=== PATIENT | male | born 1995 | race Caucasian/White ===

== ENCOUNTER → 2023-08-07 13:17 | Outpatient (REF) | payer OTHER, SELFPAY ==
[2023-08-08 20:30] LABS: Hepatitis B Surface Antibody Negative
== END ==
LOC: OHS 13:17
PROVIDERS: ATTENDING PHYSICIAN Nurse Practitioner Family
DX: Z23 Encounter for immunization (principal)
CPT/HCPCS: 86706

== ENCOUNTER 2023-11-24 16:51 | Emergency (ER) | payer BC, SELFPAY ==
[2023-11-24 16:55] VITALS: BP 159/93
[2023-11-24 18:09] VITALS: BMI 35.8
[2023-11-24 18:42] LABS: % Basophils 0.8 % (0-2); % Eosinophils 1.4 % (0-6); % Immature Granulocytes 0.2 % (0-0.5); % Monocytes 7.8 % (1.7-9.3); % Neutrophils 58.8 % (42.2-75.2); Absolute Basophils 0.1 10^3/uL (0-0.2); Absolute Eosinophils 0.1 10^3/uL (0-0.7); Absolute Monocytes 0.8 10^3/uL (0.1-0.6); Absolute Neutrophils 5.7 10^3/uL (1.4-6.5); Hematocrit 44.5 % (39.0-52.0); Hemoglobin 15.8 g/dL (13.0-18.0); Mean Corp Hgb Conc. 35.5 g/dL (33.0-37.0); Mean Corpuscular Hgb 31.9 pg (27.0-31.0); Mean Corpuscular Volume 89.9 fL (80.0-94.0); Mean Platelet Volume 9.3 fL (7.4-10.4); Nucleated Red Blood Cells % 0 % (-); Platelet Count 341 10^3/uL (130-400); Red Blood Cell Count 4.95 10^6/uL (4.70-6.10); Urine Albumin Trace (Neg - Trace); Urine Bilirubin Negative (Negative); Urine Character Clear (Clear); Urine Color Yellow; Urine Glucose Negative (Negative); Urine Ketone Negative (Negative); Urine Leukocyte Negative (Negative); Urine Nitrite Negative (Negative); Urine Occult Blood Negative (Negative); Urine Specific Gravity 1.025 (<1.030); Urine Urobilinogen 1+ (Neg - 1+); White Blood Cell Count 9.7 10^3/uL (4.8-10.8)
--- NOTE | 2023-11-24 18:56 | ED.GENMED ---
History of Present Illness
General
Chief Complaint: Abdominal Pain
Source: patient
Exam Limitations: none
Time Seen by Provider: 11/24/23 17:32
Nursing documentation reviewed up to this point in time: agreed with
History of Present Illness
History of Present Illness:
Patient to ED with complaint of RLQ abd. pain. Symptoms started 3 weeks ago and describes as mild. Last few days pain has become worse. Denies fever/chills, n/v/d. No priorhistory of same. Brought self to ED for eval.
Past History
Past History
ED Past Medical History: None
ED Past Surgical History: Other ([place] teeth)
Social History
Tobacco: Non-smoker
Alcohol: None
Drug: None
Personal: Single
Living: with family
Review of Systems
Review of Systems
Allergies reviewed?: Yes
All Other Systems: ROS reviewed and negative except as documented in HPI and ROS
Constitutional: Reports no symptoms
EENT: Reports no symptoms
Respiratory: Reports no symptoms
Cardiac: Reports no symptoms
ABD/GI: Reports abdominal pain (RLQ)
: Reports no symptoms
Musculoskeletal: Reports no symptoms
Skin: Reports no symptoms
Neurological: Reports no symptoms
Psychiatric: Reports no symptoms
Phy Exam
General Physical Exam
General Presentation: well appearing and no apparent distress
General age: appears stated age
General Skin: warm and dry
General Habitus: normal
Cardiovascular Exam
Cardiovascular Exam: regular rate/rhythm
Gastrointestinal Exam
Gastrointestinal Exam: normal bowel sounds, soft, no organomegaly, non distended and no cva tenderness
Palpation: left upper quadrant: No tenderness, left lower quadrant: No tenderness, right upper quadrant: No tenderness and right lower quadrant: Moderate tenderness
Musculoskeletal Exam
Musculoskeletal Exam: full ROM and neuro vasc intact
Skin Exam
Skin Exam: normal color, warm/dry and no rash
Psychiatric Exam
Psychiatric Exam: normal mood/affect
Course
Orders/Labs/Results
Orders:
Orders
11/24/23 18:32
Complete Blood Count/With Diff Urgent
Comprehensive Metabolic Panel Urgent
Lipase Urgent
Urinalysis Reflex To Culture Urgent
Date Specimen was Collected: 11/24/23
Time Specimen was Collected: 18:31
11/24/23 18:50
Iohexol [Omnipaque] See Protocol PO NOW STA
11/24/23 18:51
CT Abd/pel W Iv And Oral Contr Urgent
Comment:
Reason For Exam: RLQ pain
11/24/23 23:17
Amoxicillin 875 mg/Clav 125 mg [Augmentin 875 mg/125 mg] 1 tablet PO NOW STA
Abnormal Lab Results
11/24/23
18:32
MCH 31.9 H pg
(27.0-31.0)
Absolute Monos (auto) 0.8 H 10^3/uL
(0.1-0.6)
ALT 68 H U/L
(0-50)
11/24/23 18:32
11/24/23 18:32
Vital Signs
Initial and Last Documented VS:
Initial Vital Signs
Temp Pulse Resp BP Pulse Ox
98.5 F 100 18 159/93 99
11/24/23 16:55 11/24/23 16:55 11/24/23 16:55 11/24/23 16:55 11/24/23 16:55
Last Documented Vital Signs
Temp Pulse Resp BP Pulse Ox
98.7 F 69 18 126/71 99
11/24/23 22:00 11/24/23 23:45 11/24/23 23:45 11/24/23 23:45 11/24/23 23:45
*Critical Care Note
Total Time (30-74mins, 75-104mins- exclusive of procedures): Not Applicable
Update Note
Update Note:
Ct results discussed with Dr. Love. Will discharge home on po antibiotics, can follow up outpatient.. He was given instructions on s/s to return to ED and he is agreeable to plan.
ED Attending Note
-
Portions of this chart may have been created with voice recognition software.� Occasional wrong word or��sound alike� substitutions may have occurred due to the inherent limitations of voice recognition software.
Discharge Plan
Departure
Patient Disposition: Home (Routine Discharge)
Date of Disposition: 11/24/23
Time of Disposition: 23:18
Patient with high blood pressure during this ER visit?: No
Condition: Good
Covid-19: Not Applicable
Discharge Problem:
Abdominal pain in male
Instructions: Appendicitis, Adult (DC), Abdominal Pain
Prescriptions:
New
amoxicillin-pot clavulanate 875-125 mg tablet
1 tab PO BID Qty: 20 0RF
No Action
fluoxetine [Prozac] 40 MG capsule
40 mg PO Daily
amoxicillin-pot clavulanate 1 TABLET tablet
1 tab PO Q12 Qty: 20 0RF
prednisone 10 MG tablet
10 mg PO .TAPER Qty: 30 0RF
Rx Instructions:
Take 40mg daily x3days, 30mg daily x3days,
20mg daily x3days, 10mg daily x3days.
Referrals:
Juancho Love MD [Active] - Call in 1-3 days for appt
NONE,* [Family Provider] -
Stand Alone Forms: Return to Work
Activity Restrictions/Additional Instructions:
Return to the emergency department immediately for any changes in/worsening of your symptoms
Interventions
Interventions:
*Risk Screen - Suicide Last Done: 11/24/23 16:55
*General Assessment Last Done: 11/24/23 20:00
*Neglect/Abuse Screening Last Done: 11/24/23 16:55
ED- Fall Risk Assessment Last Done: 11/24/23 18:08
*ED COVID-19 Vaccine History Last Done: 11/24/23 16:55
*Nursing Disposition Last Done: 11/24/23 23:45
DR-Ccvfrj-Ccmbgufudr Assessment Last Done: 11/24/23 21:00
Discharge Date and Time
Discharge Date/Time: 11/24/23 23:47
Print Language: [place]
[2023-11-24 18:58] LABS: ALT (SGPT) 68 U/L (0-50); AST (SGOT) 49 U/L (17-59); Albumin 4.8 g/dl (3.5-5.0); Alkaline Phosphatase 116 U/L (38-126); Blood Urea Nitrogen 11 mg/dl (9-20); Calcium 9.4 mg/dl (8.4-10.2); Carbon Dioxide 27 mmol/L (22-30); Chloride 105 mmol/L (98-107); Estimated Creatinine Clearance 124 ml/min; Glucose 91 mg/dl (70-99); Lipase 60 U/L (23-300); Potassium 4.1 mmol/L (3.5-5.1); Sodium 145 mmol/L (135-145); Total Bilirubin 0.4 mg/dl (0.2-1.3); Total Protein 7.9 g/dl (6.3-8.2); eGFR > 60.00
[2023-11-24] MEDS: OMNIPAQUE 50 ML PO (19:04)
[2023-11-24 20:00] VITALS: BP 126/58
[2023-11-24 22:00] VITALS: BP 120/54
[2023-11-24] MEDS: AUGMENTIN 875 MG/125 MG 1 TABLET PO (23:35)
[2023-11-24 23:45] VITALS: BP 126/71
== END 2023-11-24 23:47 | disposition home or self-care (01) ==
LOC: EMR 16:51
PROVIDERS: Nurse Practitioner; EMERGENCY PHYSICIAN Emergency Medicine
DX: R10.31 Right lower quadrant pain (principal); R79.89 Other specified abnormal findings of blood chemistry
CPT/HCPCS: 99284; 74177; 80053; 81003; 83690; 85025; Q9967

== ENCOUNTER 2023-12-02 20:08 | Emergency (ER) | payer BC, SELFPAY ==
[2023-12-02 20:13] VITALS: BP 160/76
[2023-12-02 20:32] LABS: % Basophils 0.7 % (0-2); % Eosinophils 1.1 % (0-6); % Immature Granulocytes 0.3 % (0-0.5); % Monocytes 9.5 % (1.7-9.3); % Neutrophils 66.4 % (42.2-75.2); Absolute Basophils 0.1 10^3/uL (0-0.2); Absolute Eosinophils 0.1 10^3/uL (0-0.7); Absolute Lymphocytes 2.4 10^3/uL (1.2-3.4); Absolute Neutrophils 7.2 10^3/uL (1.4-6.5); Hemoglobin 14.9 g/dL (13.0-18.0); Mean Corp Hgb Conc. 36.3 g/dL (33.0-37.0); Mean Corpuscular Hgb 30.9 pg (27.0-31.0); Mean Corpuscular Volume 85.1 fL (80.0-94.0); Mean Platelet Volume 9.2 fL (7.4-10.4); Nucleated Red Blood Cells % 0 % (-); Platelet Count 331 10^3/uL (130-400); Red Blood Cell Count 4.82 10^6/uL (4.70-6.10); Red Cell Dist. Width 12.2 % (11.5-14.5); White Blood Cell Count 10.8 10^3/uL (4.8-10.8)
[2023-12-02 20:43] LABS: Blood Urea Nitrogen 15 mg/dl (9-20); Calcium 10.1 mg/dl (8.4-10.2); Carbon Dioxide 23 mmol/L (22-30); Chloride 106 mmol/L (98-107); Glucose 93 mg/dl (70-99); Sodium 143 mmol/L (135-145); eGFR > 60.00
[2023-12-02 21:27] VITALS: BMI 35.4
[2023-12-02 21:33] VITALS: BP 128/72
[2023-12-02 21:43] LABS: Lactic Acid 1.5 mmol/L (0.7-2.0)
[2023-12-02 22:00] VITALS: BP 119/59
--- NOTE | 2023-12-02 22:07 | ED.GENMED ---
History of Present Illness
General
Chief Complaint: Abdominal Pain
Source: patient
Exam Limitations: none
Time Seen by Provider: 12/02/23 21:27
Nursing documentation reviewed up to this point in time: agreed with
History of Present Illness
History of Present Illness:
28 yo male with hx of 'chronically enlarged appendix' here for second time in two week with RLQ pain. Here on 11/23 and after discussed with surgery, went home on Augmentin with close f/u. Pt is on day 7 of Augmentin, states pain has been constant
for 2 weeks, never had it this long and was associated with nausea today and temp of 99.2. 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 Was told to return if symptoms worsen. Pt states pain is 4-5 RLQ with
radiation to right lower back and pelvis areas.
Past History
Past History
ED Past Medical History: Psychiatric (Anxiety, ADHD, on fluoxetine)
ED Past Surgical History: Other ([place] teeth)
Social History
Tobacco: Non-smoker
Alcohol: None
Drug: None
Personal: Single
Living: with family
Review of Systems
Review of Systems
Allergies reviewed?: Yes
All Other Systems: ROS reviewed and negative except as documented in HPI and ROS
Constitutional: Denies fever
Respiratory: Denies trouble breathing
Cardiac: Denies chest pain
ABD/GI: Reports abdominal pain and nausea; Denies vomiting or diarrhea
: Denies dysuria or difficulty voiding
Musculoskeletal: Reports no symptoms
Skin: Reports no symptoms
Neurological: Reports no symptoms
Phy Exam
Physical Exam
Physical Exam:
GENERAL: No acute distress. A&Ox3.
CONSTITUTIONAL: Afebrile.
EYES: clear, conjunctivae normal
ENMT: moist mucus membranes, Pharynx nl
RESPIRATORY: Regular respirations, nonlabored, lungs clear.
CARDIOVASCULAR: Regular rate and rhythm, no murmurs, no rubs.
GI: Soft, nontender at this time, normal BS
MUSCULOSKELETAL: Moves with ease. Well perfused.
SKIN: Warm, dry, pink
PSYCH: Normal mood and affect. Well kept, interactive and appropriate
NEUROLOGIC: Awake, alert and oriented. No focal neurological deficits
Course
Orders/Labs/Results
Orders:
Orders
12/02/23 20:21
Basic Metabolic Panel Urgent
Complete Blood Count/With Diff Urgent
12/02/23 21:26
Lactic Acid Urgent
12/02/23 22:10
CT Abd/Pel (IV only)-DH only Urgent
Comment:
Reason For Exam: RLQ pain
12/02/23 22:12
0.9% Sodium Chloride 1000 ml [Nss] 1,000 ml IV BOLUS
Abnormal Lab Results
12/02/23
20:21
Absolute Neuts (auto) 7.2 H 10^3/uL
(1.4-6.5)
Absolute Monos (auto) 1.0 H 10^3/uL
(0.1-0.6)
Monocytes % 9.5 H %
(1.7-9.3)
12/02/23 20:21
12/02/23 20:21
Vital Signs
Initial and Last Documented VS:
Initial Vital Signs
Temp Pulse Resp BP Pulse Ox
98.2 F 94 22 160/76 98
12/02/23 20:13 12/02/23 20:13 12/02/23 20:13 12/02/23 20:13 12/02/23 20:13
Last Documented Vital Signs
Temp Pulse Resp BP Pulse Ox
98.2 F 94 22 119/61 97
12/02/23 20:13 12/02/23 20:13 12/02/23 20:13 12/02/23 23:00 12/02/23 23:15
MDM/Problems Addressed
Differential Diagnosis Includes:
Acute appendicitis
MDM/Problems Addressed:
28 yo male with hx of 'chronically enlarged appendix' here for second time in two week with RLQ pain. Here on 11/23 and after discussed with surgery, went home on Augmentin with close f/u. Pt is on day 7 of Augmentin, states pain has been constant
for 2 weeks, never had it this long and was associated with nausea today and temp of 99.2. 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 Was told to return if symptoms worsen. Pt states pain is 4-5 RLQ with
radiation to right lower back and pelvis areas.
Afebrile, NAD
Minimal tenderness to palpation of abdomen, no guarding.
CBC normal
CMP normal
Lactic acid normal
Consulted Dr. Amor who requests repeat CT and if no change or improved send home to f/u as out pt.
If worse, admit
11:15 PM:
CT abdomen pelvis with IV only contrast radiology report read:IMPRESSION:
1. No CT evidence for acute appendicitis.
2. Moderate diffuse hepatic steatosis.
Patient will follow-up with Dr. Amor as an outpatient.
*Critical Care Note
Total Time (30-74mins, 75-104mins- exclusive of procedures): Not Applicable
ED Attending Note
-
Portions of this chart may have been created with voice recognition software.� Occasional wrong word or��sound alike� substitutions may have occurred due to the inherent limitations of voice recognition software.
Discharge Plan
Departure
Patient Disposition: Home (Routine Discharge)
Date of Disposition: 12/02/23
Time of Disposition: 23:23
Patient with high blood pressure during this ER visit?: No
Condition: Good
Discharge Problem:
Abdominal pain
Instructions: Abdominal Pain
Prescriptions:
No Action
fluoxetine [Prozac] 40 MG capsule
40 mg PO Daily
amoxicillin-pot clavulanate 1 TABLET tablet
1 tab PO Q12 Qty: 20 0RF
prednisone 10 MG tablet
10 mg PO .TAPER Qty: 30 0RF
Rx Instructions:
Take 40mg daily x3days, 30mg daily x3days,
20mg daily x3days, 10mg daily x3days.
amoxicillin-pot clavulanate 875-125 mg tablet
1 tab PO BID Qty: 20 0RF
Referrals:
JUSTA BANG MD [Family Provider] -
Parag Amor MD [Active] - Next open appointment
Activity Restrictions/Additional Instructions:
As we discussed, nothing in your workup here today indicate acute appendicitis.
Follow-up with Dr. Amor
Interventions
Interventions:
*Risk Screen - Suicide Last Done: 12/02/23 20:13
*General Assessment Last Done: 12/02/23 21:28
*Neglect/Abuse Screening Last Done: 12/02/23 20:13
ED- Fall Risk Assessment Last Done: 12/02/23 21:28
*ED COVID-19 Vaccine History Last Done: 12/02/23 21:28
*Nursing Disposition Last Done: 12/02/23 23:33
FL-Bzjiqe-Jxpompmryx Assessment Last Done: 12/02/23 21:28
Discharge Date and Time
Discharge Date/Time: 12/02/23 23:36
Print Language: HUNGARIAN
[2023-12-02] MEDS: NSS 1000 IV (22:33)
[2023-12-02 23:00] VITALS: BP 119/61
== END 2023-12-02 23:36 | disposition home or self-care (01) ==
LOC: EMR 20:08
PROVIDERS: Emergency Medicine; EMERGENCY PHYSICIAN Emergency Medicine; FAMILY PHYSICIAN Family Medicine
DX: R10.31 Right lower quadrant pain (principal); R11.0 Nausea; R50.9 Fever, unspecified; R10.2 Pelvic and perineal pain; M54.50 Low back pain, unspecified; K76.0 Fatty (change of) liver, not elsewhere classified; J45.909 Unspecified asthma, uncomplicated; F41.9 Anxiety disorder, unspecified; F90.9 Attention-deficit hyperactivity disorder, unspecified type; Z79.899 Other long term (current) drug therapy; Z88.1 Allergy status to other antibiotic agents
CPT/HCPCS: 99284; 96360; 74177; 80048; 83605; 85025; Q9967

== ENCOUNTER 2024-04-21 12:04 | Emergency (ER) | payer BC, SELFPAY ==
[2024-04-21 12:06] VITALS: BP 133/96
[2024-04-21 12:26] LABS: % Eosinophils 1.6 % (0-6); % Immature Granulocytes 0.3 % (0-0.5); % Lymphocytes 31.8 % (20.5-51.1); % Monocytes 11.3 % (1.7-9.3); Absolute Basophils 0.1 10^3/uL (0-0.2); Absolute Eosinophils 0.1 10^3/uL (0-0.7); Absolute Lymphocytes 2.1 10^3/uL (1.2-3.4); Absolute Monocytes 0.8 10^3/uL (0.1-0.6); Absolute Neutrophils 3.6 10^3/uL (1.4-6.5); Hematocrit 45.5 % (39.0-52.0); Hemoglobin 15.6 g/dL (13.0-18.0); Mean Corp Hgb Conc. 34.3 g/dL (33.0-37.0); Mean Corpuscular Hgb 30.6 pg (27.0-31.0); Mean Corpuscular Volume 89.4 fL (80.0-94.0); Mean Platelet Volume 9.2 fL (7.4-10.4); Nucleated Red Blood Cells % 0 % (-); Platelet Count 324 10^3/uL (130-400); Red Blood Cell Count 5.09 10^6/uL (4.70-6.10); Red Cell Dist. Width 12.4 % (11.5-14.5); White Blood Cell Count 6.7 10^3/uL (4.8-10.8)
[2024-04-21 12:50] LABS: ALT (SGPT) 63 U/L (0-50); AST (SGOT) 40 U/L (17-59); Albumin 4.6 g/dl (3.5-5.0); Alkaline Phosphatase 98 U/L (38-126); Blood Urea Nitrogen 13 mg/dl (9-20); Calcium 9.9 mg/dl (8.4-10.2); Carbon Dioxide 28 mmol/L (22-30); Chloride 104 mmol/L (98-107); Glucose 109 mg/dl (70-99); Lipase 56 U/L (23-300); Potassium 5.1 mmol/L (3.5-5.1); Sodium 141 mmol/L (135-145); Total Bilirubin 0.6 mg/dl (0.2-1.3); Total Protein 7.8 g/dl (6.3-8.2); eGFR > 60.00
--- NOTE | 2024-04-21 14:32 | ED.GENMED ---
History of Present Illness
General
Chief Complaint: Abdominal Pain
Time Seen by Provider: 04/21/24 14:04
History of Present Illness
History of Present Illness:
28-year-old male without significant past medical history presenting to the emergency department for concern of some bloating and nausea. Patient reports for the past several months he has been having chronic abdominal bloating and soft stools. He
came to the hospital at 1 point, was found to have acute appendicitis, treated with antibiotics and symptoms improved. However the symptoms worsen repeat CT imaging without evidence of appendicitis. Today he felt like his bloating stopped, however
was having some nausea and diaphoresis. Denies cough or fever. Denies changes in stool. Denies any present abdominal pain. Denies additional acute medical complaints
Past History
Past History
ED Past Medical History: Psychiatric (Anxiety, ADHD, on fluoxetine)
ED Past Surgical History: Other ([place] teeth)
Social History
Tobacco: Non-smoker
Alcohol: None
Drug: None
Personal: Single
Living: with family
Phy Exam
Physical Exam
Physical Exam:
General: Well-appearing, no clinical signs of dehydration, nontoxic and in no acute distress
HEENT: protecting airway
Neck: appears supple
CV: Normal heart rate
Resp: No accessory muscle use, no increased work of breathing
Abd: Soft and non-distended, no tenderness to palpation
Extremities: No deformities, no swelling
Neuro: alert, no focal neurologic deficit
: deferred
Rectal: deferred
Psych: Normal affect
Skin: Intact
Course
Orders/Labs/Results
Orders:
Orders
04/21/24 12:13
Complete Blood Count/With Diff Urgent
Comprehensive Metabolic Panel Urgent
Lipase Urgent
Abnormal Lab Results
04/21/24
12:13
Absolute Monos (auto) 0.8 H 10^3/uL
(0.1-0.6)
Monocytes % 11.3 H %
(1.7-9.3)
Glucose 109 H mg/dl
(70-99)
ALT 63 H U/L
(0-50)
04/21/24 12:13
04/21/24 12:13
Vital Signs
Initial and Last Documented VS:
Initial Vital Signs
Temp Pulse Resp BP Pulse Ox
98.2 F 90 16 133/96 98
04/21/24 12:06 04/21/24 12:06 04/21/24 12:06 04/21/24 12:06 04/21/24 12:06
Last Documented Vital Signs
Temp Pulse Resp BP Pulse Ox
98.2 F 90 16 133/96 98
04/21/24 12:06 04/21/24 12:06 04/21/24 12:06 04/21/24 12:06 04/21/24 12:06
MDM/Problems Addressed
MDM/Problems Addressed:
28-year-old male presenting to the emergency department for abdominal bloating and nausea. Vital signs on arrival are normal.
On exam, patient is well-appearing, nontoxic. On abdominal exam, no focal tenderness to the abdomen, soft and nondistended. Patient again denying any present abdominal pain. His concern was that his symptoms that he has been having for the past
several months have suddenly stopped. At this time do not suspect acute appendicitis. Patient had screening laboratory analysis prior to my assessment, no leukocytosis. Mild elevation of AST, however appears chronic, patient reports history of
fatty liver disease. No concern for serious intra-abdominal process or infection at this time. Do not feel patient requires any advanced imaging. Patient has never seen a GI doctor for her symptoms. Ultimately suspect possible IBS versus
inflammatory bowel disease. Also feel patient may benefit from colonoscopy. Will provide GI follow-up. At this time feel stable for discharge. Strict return precautions communicated patient verbalized understanding
*Critical Care Note
Total Time (30-74mins, 75-104mins- exclusive of procedures): Not Applicable
ED Attending Note
-
Portions of this chart may have been created with voice recognition software.� Occasional wrong word or��sound alike� substitutions may have occurred due to the inherent limitations of voice recognition software.
Discharge Plan
Departure
Prescriptions:
No Action
fluoxetine [Prozac] 40 MG capsule
40 mg PO Daily
amoxicillin-pot clavulanate 1 TABLET tablet
1 tab PO Q12 Qty: 20 0RF
prednisone 10 MG tablet
10 mg PO .TAPER Qty: 30 0RF
Rx Instructions:
Take 40mg daily x3days, 30mg daily x3days,
20mg daily x3days, 10mg daily x3days.
amoxicillin-pot clavulanate 875-125 mg tablet
1 tab PO BID Qty: 20 0RF
Interventions
Interventions:
*Risk Screen - Suicide Last Done: 04/21/24 12:06
*General Assessment Last Done: 04/21/24 12:06
*Neglect/Abuse Screening Last Done: 04/21/24 12:06
ED- Fall Risk Assessment Last Done: 04/21/24 14:20
*ED COVID-19 Vaccine History Last Done: 04/21/24 12:06
BH-Nwacti-Lffoddxsuh Assessment Last Done: 04/21/24 14:20
Discharge Date and Time
Print Language: GUYANESE
== END 2024-04-21 14:50 | disposition home or self-care (01) ==
LOC: EMR 12:04
PROVIDERS: Emergency Medicine; EMERGENCY PHYSICIAN Student in an Organized Health Care Education/Training Program
DX: R14.0 Abdominal distension (gaseous) (principal); R11.0 Nausea
CPT/HCPCS: 99283; 80053; 83690; 85025

== ENCOUNTER → 2024-09-07 13:25 | Outpatient (REF) | payer BC, SELFPAY | LOC: CLAB 13:25 | PROVIDERS: Pathology Anatomic Pathology & Clinical Pathology; ATTENDING PHYSICIAN Physician Assistant Medical | DX: D48.5 Neoplasm of uncertain behavior of skin (principal) | CPT/HCPCS: 88305 ==

== ENCOUNTER → 2024-12-28 14:19 | Outpatient (REF) | payer BC, SELFPAY | LOC: RAD 14:19 | PROVIDERS: ATTENDING PHYSICIAN Surgery; FAMILY PHYSICIAN Family Medicine | DX: N50.811 Right testicular pain (principal); R10.31 Right lower quadrant pain | CPT/HCPCS: 76770; 76870; 93976 ==